=== PATIENT | male | born 1995 | race Caucasian/White ===

== ENCOUNTER 2024-08-23 19:36 | Emergency (ER) | payer BC, SELFPAY ==
[2024-08-23] VITALS (14 sets, daily range): BP systolic 106–131; BP diastolic 65–82; PULSE 85–118; RESP 16–27; TEMP 36.4–37.2; O2SAT 95–100
--- NOTE | 2024-08-23 20:30 | RT.EKG_ITS ---
APPROVED REPORT Exam: Resting ECG Reason for Exam: COLD EXPOSURE Patient Location: E HR:90 bpm ECG Measurements Heart Rate 90 AXIS NE 184 P 61 QRSd 108 QRS 77 QT 348 T 32 QTc 426 Conclusion Sinus rhythm 90 normal axis no stemi
[2024-08-23 20:37] LABS: Abs Immature Grans 0.08 10^3/uL (0.0-0.06); Basophils % 0.3 %; Eosinophils % 0.1 %; HCT 46.6 % (40.0-50.0); HGB 16.7 g/dL (13.5-17.5); Immature Grans % 0.4 %; Lymphocytes % 7.3 %; MCH 31.6 pg (27.0-33.0); MCHC 35.8 % (32.0-36.0); MCV 88 fL (80-95); MPV 10.8 fL (8.0-11.0); Monocytes % 7.8 %; Neutrophils % 84.1 %; Platelet Count 281 10^3/uL (130-400); RBC 5.28 10^6/uL (4.36-5.78); RDW 11.8 % (11.8-14.1); RDW-SD 37.8 fL; WBC 17.98 10^3/uL (4.4-10.8)
[2024-08-23 20:39] LABS: Absolute Basophil Count 0.05 10^3/uL (0.0-0.2); Absolute Eosinophil Count 0.02 10^3/uL (0.0-0.7); Absolute Lymphocyte Count 1.31 10^3/uL (1.2-3.4); Absolute Neutrophil Count 15.12 10^3/uL (1.2-6.7); Lactate 2.8 mmol/L (0.6-1.4)
[2024-08-23] MEDS: Normal Saline 1,000 ML 1000 ML IV (20:44)
[2024-08-23 20:54] LABS: ALT 20 U/L (16-63); AST 10 U/L (15-37); Albumin 4.6 g/dL (3.4-5.0); Alkaline Phosphatase 94 U/L (46-116); Anion Gap 13.6 mmol/L (3-11); BUN 16 mg/dL (7-18); Bilirubin, Total 0.52 mg/dL (0.2-1.0); CO2 24.4 mmol/L (21.0-32.0); CREATININE 1.4 mg/dL (0.70-1.30); Calcium 8.9 mg/dL (8.5-10.1); Chloride 104 mmol/L (98-107); Creatine Kinase 154 U/L (39-308); Estimated GFR 70.65 (mL/min/1.73m2); Glucose 101 mg/dL (74-106); Magnesium 2.6 mg/dL (1.8-2.4); Potassium 3.4 mmol/L (3.5-5.1); Sodium 142 mmol/L (136-145); Total Protein 7.8 g/dL (6.4-8.2)
[2024-08-23 20:58] LABS: PTT Activated 22.9 sec (23.6-32.8); Prothrombin Time 10.3 sec (9.1-11.1)
--- NOTE | 2024-08-23 22:15 | RT.EKG_ITS ---
APPROVED REPORT Exam: Resting ECG Reason for Exam: COLD EXPOSURE Patient Location: E HR:88 bpm ECG Measurements Heart Rate 88 AXIS NE 161 P 0 QRSd 109 QRS 83 QT 354 T 48 QTc 429 Conclusion Sinus rhythm..unreadable baseline
--- NOTE | 2024-08-23 22:30 | RT.EKG_ITS ---
APPROVED REPORT Exam: Resting ECG Reason for Exam: COLD EXP Patient Location: E HR:98 bpm ECG Measurements Heart Rate 98 AXIS DC [id number] P [id number] QRSd 107 QRS 79 QT 349 T 33 QTc 446 Conclusion sinus 98 no stemi irregular baseline
--- NOTE | 2024-08-23 22:41 | NUR.NOTE ---
Nursing Note: Received report from priyanka Aldanaedic. Assumed care of patient at 2200.
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
== END 2024-08-23 23:17 | disposition home or self-care (01) ==
PROVIDERS: Emergency Provider Emergency Medicine; PCP Physician Assistant
DX: G47.419 Narcolepsy without cataplexy (principal); T33.42XA Superficial frostbite of left arm, initial encounter; T33.41XA Superficial frostbite of right arm, initial encounter; T33.71XA Superficial frostbite of right knee and lower leg, initial encounter; T33.72XA Superficial frostbite of left knee and lower leg, initial encounter; X31.XXXA Exposure to excessive natural cold, initial encounter; Y93.89 Activity, other specified; Y92.838 Other recreation area as the place of occurrence of the external cause; F17.290 Nicotine dependence, other tobacco product, uncomplicated
CPT/HCPCS: 80053; 82550; 93005; 96360; 99284; 83605; 83735; 84484; 85025; 85610; 85730; 93010